=== PATIENT | male | born 1955 | race Caucasian/White ===

== ENCOUNTER 2024-01-01 06:00 | Inpatient (IN) ==
--- NOTE | 2023-12-13 10:09 | PAT Medication Instructions ---
Medication Instructions Date of Service December 13, 2023 Home Medications Medication Instructions Recorded gabapentin 600 mg tablet 600 mg PO TID #270 tabs 11/20/23 tramadol 50 mg tablet 50 mg PO BID PRN pain #40 tabs 11/20/23 nifedipine 30 mg tablet,extended release 24 hr (Procardia XL) 30 mg PO QAM acetaminophen 650 mg tablet,extended release 650 mg PO Q12H PRN omeprazole magnesium 20 mg tablet,delayed release (Prilosec OTC) 20 mg PO QAM gabapentin 600 mg tablet 600 mg PO TID tramadol 50 mg tablet 50 mg PO BID PRN cholecalciferol (vitamin D3) 50 mcg (2,000 unit) capsule (Vitamin D3) 50 mcg PO QAM diphenhydramine HCl 25 mg capsule (Benadryl) 50 mg PO DAILY PRN finasteride 5 mg tablet 5 mg PO QAM potassium 99 mg tablet 99 mg PO QAM DO NOT take the morning of surgery cholecalciferol (vitamin D3) 50 mcg (2,000 unit) capsule (Vitamin D3) 50 mcg PO QAM diphenhydramine HCl 25 mg capsule (Benadryl) 50 mg PO DAILY PRN potassium 99 mg tablet 99 mg PO QAM Take morning of surgery With a small sip of water, OTHERWISE NOTHING TO EAT OR DRINK AFTER MIDNIGHT: nifedipine 30 mg tablet,extended release 24 hr (Procardia XL) 30 mg PO QAM acetaminophen 650 mg tablet,extended release 650 mg PO Q12H PRN(if needed) omeprazole magnesium 20 mg tablet,delayed release (Prilosec OTC) 20 mg PO QAM gabapentin 600 mg tablet 600 mg PO TID tramadol 50 mg tablet 50 mg PO BID PRN(if needed) finasteride 5 mg tablet 5 mg PO QAM Take evening before surgery acetaminophen 650 mg tablet,extended release 650 mg PO Q12H PRN(if needed) gabapentin 600 mg tablet 600 mg PO TID tramadol 50 mg tablet 50 mg PO BID PRN(if needed) Other Notes If you have any questions please call us at [phone] or [phone] or [phone] or [phone]
--- NOTE | 2023-12-21 12:35 | Anesthesiology Consultation ---
Date of Service December 21, 2023 Assessment & Plan (1) Encounter for pre-operative examination: - Infectious disease screening: Per assessment on 12/21/23: No known recent infectious disease contacts or current infectious disease symptoms. - Patient acceptable risk for surgery pending surgeon-ordered PCP preop evaluation ([facility] [place], appt 12/21). Chart Review Chart Review: Patient seen in Pre Admission Testing Teaching & Discussion Pre-Anesthesia Teaching/Discussion Notes: Instructed NPO after midnight before surgery,except medications with 15 cc of water. Medication instructions provided according to the PAT guidelines. History Surgery Operation Date: 01/01/24 07:45 Proposed Procedures p L2-L3 Lumbar Decompression, L2-L3 Interbody Cage, L3-S1 Lumbar Fusion, L3-L5 Hardware Removal, with Spinal Cord Monitoring - Odilon Estevez DO Height/Weight Height: 6 ft Weight: 109.9 kg Allergies Allergy/AdvReac Type Severity Reaction Status Date / Time nabumetone [From Relafen] Allergy Intermediate Mouth sores Verified 12/15/23 15: 32 NSAIDS (Non-Steroidal Allergy Intermediate Mouth Verified 12/15/23 15:32 Anti-Inflamma sores - (tolerates Ibuprofen/ASA) morphine AdvReac Intermediate Gastrointestinal Verified 12/12/23 12:37 Upset Medications Home Medications Medication Instructions Recorded Confirmed Last Taken nifedipine 30 mg tablet,extended 30 mg PO QAM 05/22/19 12/12/23 Unknown release 24 hr (Procardia XL) acetaminophen 650 mg 650 mg PO Q12H PRN Pain 10/02/23 12/12/23 Unknown tablet,extended release omeprazole magnesium 20 mg 20 mg PO QAM 10/02/23 12/12/23 Unknown tablet,delayed release (Prilosec OTC) gabapentin 600 mg tablet 600 mg PO TID #270 tabs 11/20/23 12/12/23 Unknown tramadol 50 mg tablet 50 mg PO BID PRN pain #40 tabs 11/20/23 12/12/23 Unknown cholecalciferol (vitamin D3) 50 50 mcg PO QAM 12/12/23 12/12/23 Unknown mcg (2,000 unit) capsule (Vitamin D3) diphenhydramine HCl 25 mg capsule 50 mg PO DAILY PRN allergies 12/12/23 12/12/23 Unknown (Benadryl) finasteride 5 mg tablet 5 mg PO QAM 12/12/23 12/12/23 Unknown potassium 99 mg tablet 99 mg PO QAM 12/12/23 12/12/23 Unknown Past Medical History Medical History BPH (benign prostatic hyperplasia) GERD (gastroesophageal reflux disease) Hx pulmonary embolism s/p lumbar fusion in 2019 about 1 week after the surgery. treated inpatient for 1 week at [facility], treated with anticoagulants for ~6months. the PE is resolved and doing well, no current issues Hypertension Neuropathy bilateral legs Spinal stenosis Exercise / Class Metabolic Activity II 4-5 Yardwork/Stairs/Walk up hill (one FS: No CP, no SOB) Past Family History Family History Other No family history of adverse response to anesthesia Past Surgical History Surgical History History of colonoscopy History of lumbar fusion (2019) [facility] [place] [facility] [place]) History of rotator cuff surgery R/L S/P epidural steroid injection lumbar S/P left knee arthroscopy Past Anesthesia History No Hx of Anesthesia Complications and No Family Hx of Anesthesia Complications History of PONV No Hx of PONV and No Hx of Motion Sickness Social History Smoking Status: Former smoker Do You Dip or Chew Tobacco: No Smoking End Date: Quit 1999 Hx Alcohol Use: Yes Alcohol type: beer alcohol intake frequency: a few times a month Hx Substance Use: No substance use type: does not use Review of Systems Patient denies chest pain, shortness of breath, dyspnea on exertion, fever, chills, cough, wheezing, palpitations. Physical Exam Vital Signs BP 128/82 P 71 TEMP 97.9 SP02 98%RA RESP 16 Physical Full cervical extension range of motion. Full TMJ range of motion. TMD > 3.5 finger breaths Mallampati Score I Dentition: missing molars, + crowns Lungs: clear throughout to auscultation Cardiac: regular rate and rhythm, no murmurs noted Spine: normal Carotid arteries: negative bruit Extremities: no LE edema Trimmed sanabria Lab Results Anesthesia Preop Results Results Anesthesia Widget: WBC 4.04 K/ul (4.8-10.8) L 12/21/23 Hgb 13.3 g/dl (14.0-18.0) L 12/21/23 Hct 39.4 % (42.0-52.0) L 12/21/23 Plt 184 K/uL (130-400) 12/21/23 Na 140 mmol/L (136-145) 12/21/23 K 4.1 mmol/L (3.5-5.1) 12/21/23 Cl 109 mmol/L (98-107) H 12/21/23 CO2 24 mmol/L (21-32) 12/21/23 BUN 35 mg/dl (6-23) H 12/21/23 Creat 1.19 mg/dl (0.6-1.4) 12/21/23 Glucose Level 96 mg/dl (70-99(Fasting)) 12/21/23 PT 11.5 Seconds (9.0-12.0) 12/21/23 PTT 25 Seconds (21-31) 12/21/23 INR 1.1 (0.9-1.1) 12/21/23 Urine Color Yellow 12/21/23 Urine Appearance Clear (Clear) 12/21/23 Urine pH 5.5 (4.5-7.5) 12/21/23 Urine Specific [place] 1.030 (1.000-1.030) 12/21/23 Urine Protein Trace (Negative) H 12/21/23 Urine Glucose (UA) Negative (Negative) 12/21/23 Urine Ketones Trace (Negative) H 12/21/23 Urine Blood Negative (Negative) 12/21/23 Urine Nitrite Negative (Negative) 12/21/23 Urine Bilirubin Negative (Negative) 12/21/23 Urine Urobilinogen Negative (Negative) 12/21/23 Urine Leukocyte Esterase Negative (Negative) 12/21/23 Urine WBC (Auto) 0-5 /hpf (0-5) 12/21/23 Urine RBC (Auto) 0-2 /hpf (0-2) 12/21/23 Urine Hyaline Casts (Auto) 0-2 /lpf (0-2) 12/21/23 Urine Epithelial Cells (Auto) 0-2 /hpf (0-2) 12/21/23 Urine Bacteria (Auto) None Seen (None Seen) 12/21/23 Blood Type B Positive 12/21/23 Antibody Screen NEGATIVE 12/21/23 Testing Electrocardiogram Date: 12/21/23 NSR at 68bpm. 1st degree AVB. iRBBB. Rightward axis. Chest X-Ray Date: 12/21/23 FINDINGS: PA and lateral chest radiographs are obtained. No prior studies are available for comparison at the time of dictation. The cardiomediastinal silhouette is top normal for projection. The lungs and pleural spaces are clear. There is no pneumothorax. The bony thorax appears intact. Degenerative change is noted in the spine. IMPRESSION: No active disease in the chest.
--- OUTSIDE RECORDS SUMMARY | 2024-01-01 06:03 | External Medical Summary | Summary of Care ---
Author Name Unknown Organization [facility] Ambulatory Address [address] [place] [address] Phone Care Team Providers Care [employer] Name Role Phone Mundo Rachel PA-C Primary Care Provider [phone] ProviderEugenia MD Unavailable Unavailabl e Sav Jorgensen DO Unavailable [phone] Keri Winston DO Unavailable [phone] Miley Burnett MD Unavailable [phone] Enrique Lerma DO Unavailable [phone] Arvin Sargent MD Unavailable [phone] Provider, Historical Unavailable Unavailable External, Provider Unavailable Unavailable Dino Marquez PA-C Unavailable [phone] Ed Munoz Unavailable [phone] Provider, Generic External Data Unavailable Unavailable Source Comments This information has been disclosed to you from records protected by federal confidentiality rules (42 CFR part 2). The federal rules prohibit you from making any further disclosure of information inthis record that identifies a patient as having or having had a substance use disorder either directly, by reference to publicly available information, or through verification of such identification by another person unless further disclosure is expressly permitted by the written consent of the individual whose information is being disclosed or as otherwise permitted by 42 CFR part 2. A general authorization for the release of medical or other information is NOT sufficient for this purpose (seesection 2.31). The federal rules restrict any use of the information to investigate or prosecute with regard to a crime any patient with a substance use disorder, except as provided at sections 2.12(c)(5) and 2.65.[facility] Ambulatory Reason for Visit * Reason Comments Pre-Op Exam Encounter Details Date Type Department Care Team (Late st Contact Info) Description 12/22/2023 8:00 AM EDT Office Visit [facility] Family Yandel Hernandez [address] [place] [phone] Waiter: Amber Garcia Colby J, PA-C [address] [place] [phone] Pre-op exam (Primary Dx) Allergies Active Allergy Reactions Criticality Noted Date Comments Environmental Allergens 09/13/2019 Morphine 09/16/2019 Nsaids (Non-Steroidal Anti-I nflammatory Drug) 08/21/2019 Nabumetone 01/24/2018 documented as of this encounter (statuses as of 12/22/2023) Medications Medication Sig Dispensed Refills Start Date End Date Status acetaminophen (TYLENOL ER) 650 mg oral extended-release tablet Take 650 mg by mouth every 8 hours as needed Active chlorpheniramine maleate (ALLERGY 4-HOUR ORAL) Take 1 tablet by mouth daily Active finasteride (PROSCAR) 5 mg oral tablet Take 1 tablet by mouth daily 90 tablet 4 03/17/2023 Active NIFEdipine (PROCARDIA-XL) 30 mg oral extended-release tablet Take 1 tablet by mouth daily 90 tablet 1 10/24/2023 Active gabapentin (NEURONTIN) 600 mg oral tablet Take 1 tablet by mouth 3 times a day 11/20/2023 Active ibuprofen (ADVIL MIGRAINE) 200 mg oral Take 600 mg by mouth every 4 hours as needed for pain (breakthrough) Active cholecalciferol, Vitamin D3, (D3-2000) 50 mcg (2,000 unit) oral Take 1,000 units by mouth 2 times a day Active betamethasone valerate (VALISONE) 0.1 % topical lotion Apply to affected area 2 times a day 60 mL 03/04/2020 12/22/2023 Discontinued (Completed) methylPREDNISolon e (MEDROL, CHING,) 4 mg oral tablet Take as directed. 21 tablet 09/25/2023 12/22/2023 Discontinued (Completed) documented as of this encounter (statuses as of 12/22/2023) Active Problems Problem Noted Date Diagnosed Date Status post lumbar spinal fusion 10/26/2019 Acute retention of urine 09/16/2019 Benign prostatic hyperplasia with urinary obstru ction 09/16/2019 Spinal stenosis of lumbar region 09/16/2019 Polymyalgia rheumatica 06/07/2019 Bilateral hand pain 06/07/2019 Essential hypertension with goal blood pressure less than 140/90 11/17/2015 Gastroesophageal reflux disease without esophagi tis 05/12/2015 documented as of this encounter (statuses as of 12/22/2023) Immunizations Name Administration Dates Next Due Tdap 02/16/2012 documented as of this encounter Social History Tobacco Use Types Packs/Day Years Used Date Smoking Tobacco: Former Cigarettes 31 1 969 - 1999 Smokeless Tobacco: Never Comments:Quit 20 years ago Alcohol Use Standard Drinks/Week Comments Not Currently 0 (1 standard drink = 0.6 oz pur e alcohol) AUDIT-C Answer Date Recorded Q1: How often do you have a drink containing alc ohol? Never 09/22/2020 Average Number of Drinks Not on file 021 Frequency of Binge Drinking Not on file 11/2020 [facility] - Occupational Stress Questionnaire Answer Date Recorded Do you feel stress - tense, restless, nervous, or anxious, or unable to sleep at night because your mind is troubled all the time - these days? Not at all 04/22/2020 Exercise Vital Sign Answer Date Recorde d On average, how many days pe r week do you engage in moderate to strenuous exercise (like a brisk walk)? 0 days Minutes of Exercise per Session Not on file 04/22/2020 Depression Answer Date Recorded PHQ-2 Screening Result Negative PHQ Result Negative 06/28/2023 Sex and Gender Information Value Date Recorded Sex Assigned at Not on file Gender Identity Not on file Sexual Orientation Not on file documented as of this encounter Last Filed Vital Signs Vital Sign Reading Time Taken Comments Blood Pressure 142/86 12/22/2023 8:23 AM EDT Pulse 66 12/22/2023 8:10 AM EDT Temperature 36.6 C (97.9 F) 12/22/2023 8:10 AM ED T Respiratory Rate 16 12/22/2023 8:10 AM EDT Oxygen Saturation 99% 12/22/2023 8:10 AM EDT Inhaled Oxygen Concentration - - Weight 110 kg (242 lb 6.4 oz) 12/22/2023 8:10 AM EDT Height 182.9 cm (6') 12/22/2023 8:10 AM EDT Body Mass Index 32.88 12/22/2023 8:10 AM EDT documented in this encounter Progress Notes * Mundo Rachel PA-C - 12/22/2023 8:00 AM EDT [facility] [place] [address] [place] [address] Name: Guru Schmidt Date of : 1955 Chief Complaint Preop Exam History of Present Illness Guru Schmidt is a 68 year old male who presents today for preop exam for upcoming lumbar surgeryon 01/01/24. History of previous lumbar surgery in 2019. Was sent to pain management at [facility] following office visit here in June. Injections not helpful. Had updated MRI that showed operable changes from previous. He states he is feeling well outside of back pain. No recent fever/illness. Appetite normal. I have personally reviewed and updated the patient's problem list, past medical, surgical, family histories, review of systems as well as the patient's medications and allergies. Please refer to the patient's chart for further details. Review of Systems Review of Systems Constitutional: Negative. Skin: Negative. HENT: Negative. Eyes: Negative. Cardiovascular: Negative. Respiratory: Negative. Gastrointestinal: Negative. Neurological: Negative. Musculoskeletal: Positive for back pain. Family History Problem Relation Age of Onset Cancer Biological Father Ca, Prostate Biological Father Hypertension Biological Father Ca, Bladder No History of Ca, Kidney No History of Kidney Disease No History of Urolithiasis No History of Social History Tobacco Use Smoking status: Former Current packs/day: 0.00 Average packs/day: 1 pack/day for 31.0 years (31.0 ttl pk-yrs) Types: Cigarettes Start date: 1968 Quit date: 2000 Years since quittin.6 Smokeless tobacco: Never Tobacco comments: Quit 20 years ago Vaping Use Vaping status: never used Substance Use Topics Alcohol use: Not Currently Drug use: No Past Surgical History: Procedure Laterality Date ARTHROSCOPY, KNEE, SURGICAL; W/ MENISCUS REPAIR, MEDIAL/LATERAL Right BACK SURGERY COLONOSCOPY KNEE SURGERY Right meniscus surgery REMOVAL OF SPERM DUCT(S) REP SHOULDER/ROTATOR CUFF Bilateral SHOULDER SURGERY Bilateral RCR Outpatient Medications Marked as Taking for the 12/22/23 encounter (Office Visit) with Mundo Rachel PA-C Medication Sig Dispense Refill acetaminophen (TYLENOL ER) 650 mg oral extended-release tablet Take 650 mg by mouth every 8 hours as needed chlorpheniramine maleate (ALLERGY 4-HOUR ORAL) Take 1 tablet by mouth daily cholecalciferol, Vitamin D3, (D3-2000) 50 mcg (2,000 unit) oral Take 1,000 units by mouth 2 times aday finasteride (PROSCAR) 5 mg oral tablet Take 1 tablet by mouth daily 90 tablet 4 gabapentin (NEURONTIN) 600 mg oral tablet Take 1 tablet by mouth 3 times a day ibuprofen (ADVIL MIGRAINE) 200 mg oral Take 600 mg by mouth every 4 hours as needed for pain (breakthrough) NIFEdipine (PROCARDIA-XL) 30 mg oral extended-release tablet Take 1 tablet by mouth daily 90 tablet1 Physical Exam BP (!) 156/90 | Pulse 66 | Temp 97.9 F (36.6 C) (Temporal) | Resp 16 | Ht 6' (182.9 cm) | Wt 242 lb 6.4 oz (110 kg) | SpO2 99% | BMI 32.88 kg/m Wt Readings from Last 2 Encounters: 12/22/23 242 lb 6.4 oz (110 kg) 09/25/23 233 lb 3.2 oz (105.8 kg) BP Readings from Last 2 Encounters: 12/22/23 (!) 156/90 09/25/23 124/80 Physical Exam Vitals and nursing note reviewed. Constitutional: General: He is not in acute distress. Appearance: Normal appearance. HENT: Right Ear: Tympanic membrane and ear canal normal. Left Ear: Tympanic membrane and ear canal normal. Cardiovascular: Rate and Rhythm: Normal rate and regular rhythm. Heart sounds: Normal heart sounds. Pulmonary: Effort: Pulmonary effort is normal. No respiratory distress. Breath sounds: Normal breath sounds. Abdominal: Palpations: Abdomen is soft. Tenderness: There is no abdominal tenderness. Musculoskeletal: Cervical back: Neck supple. Lumbar back: No tenderness. Right lower leg: No edema. Left lower leg: No edema. Comments: SLR test reproduces back pain without radiating pains Neurological: Mental Status: He is alert and oriented to person, place, and time. Sensory: No sensory deficit. Motor: No weakness. Impression and Plan Diagnosis ICD-10-CM Plan 1. Pre-op exam Z01.818 - cleared for surgery - follow up here as directed by surgical team - call with questions/concerns Mundo Rachel PA-C [facility] [place] 12/22/23 documented in this encounter Nursing Notes * Madeline Wong LPN - 12/22/2023 8:00 AM EDT Pt here for pre op clearance for low back surgery-pt having spinal fusion with hardware by Dr. Estevez on 01/01/24. Pt did have pre op clearance completed. documented in this encounter Plan of Treatment Health Maintenance Due Date Last Done Comments AAA Screening 1955 Cologuard 1955 Fecal Occult Blood Testing 1955 Sigmoidoscopy 1955 Colonoscopy 04/17/2017 04/17/2007 Billable Depression Screen 10/20/202210/20, 04/22/2020 Medicare Annual Wellness Visit 03/30/2023 03/30/2022 Flu Vaccine (#1) 01/16/2024 COVID-19 Vaccine (#1) 06/27/2024 Postpo so from 12/14/1960 (Recommended Yet Declined) Colorectal Cancer Screening 06/27/2024 Postponed from 1955 (Recommended Yet Declined) DTaP/Tdap/Td Vaccine (2 - Td or Tdap) 06/27/2024 02/16/2012 Postponed from 02/15 (Recommended) Full Body Skin Exam 06/27/2024 12/13/2018 Postpone d from 12/14/2019 (Recommended) Hearing Screening 06/27/2024 Postponed from 12/14/2020 (Recommended) Hepatitis C Screen 06/27/2024 Postponed from 12/14/1973 (Recommended Yet Declined) Pneumococcal Vaccine (1 of 2 - PCV) 06/27/2024 Postponed from 12/14 (Recommended Yet Declined) Shingles Vaccine (Recombinant) (1 of 2) 06/27/2024 Postponed from (Recommended Yet Declined) Prostate Discussion 01/09/2025 01/09/2023, 04/15/2020, 07/23/2018 Vision Exam 10/20/2026 10/20/2021 Advance Directives 01/13/2027 01/13/2022, 10/31/2018 Cholesterol Screening 06/27/2028 06/28/2023 , 04/15/2020, 07/23/2018 Depression Screening Completed 12/22/2023, 06/28/2023 Hepatitis B Vaccine Aged Out No longe r eligible based on patient's age to complete this topic documented as of this encounter Visit Diagnoses Diagnosis Pre-op exam- Primary Preoperative examination, unspecified documented in this encounter Care Teams [employer] Relationship Specialty Start Date End Date Munod Rachel PA-C [address] [facility] [address] [place] [phone] PCP - General Family Medicine 01/24/18 Provider, Abstract, MD KAM PROVIDER 08/23/18 Sav Jorgensen DO [address] [facility] [address] [place] [phone] (Work) Sports Medicine 09/04/18 Keri Winston DO [phone] [place] [phone] Rheumatology 12/14/18 Miley Burnett MD [address] [place] [phone] Vascular Surgery 03/28/19 Enrique Lerma DO [address] [place] [phone] Vascular Surgery 04/08/19 Arvin Sargent MD [address] [place] [phone] Pain Medicine 05/01/19 Provider, Historical EPICARE PROVIDER 08/14/19 External, Provider 10/03/19 Dino Marquez PA-C [address] [facility] [address] [place] [phone] Sports Medicine 11/05/21 Ed Munoz CRNP [address] [place] [phone] Urology 01/13/22 Provider, Generic External Data 12/22/23 documented as of this encounter"
[2024-01-01] MEDS: ACETAMINOPHEN 500 MG TAB PO SCH (06:32)
[2024-01-01] MEDS: LR 15ML/HR IV SCH (06:32)
[2024-01-01] MEDS: GABAPENTIN 300 MG CAP PO SCH (06:32)
[2024-01-01] MEDS: CeleBREX 200 MG CAP PO SCH (06:32)
[2024-01-01] MEDS: LR 60ML/HR IV SCH (06:32)
[2024-01-01] MEDS ORDERED: ONDANSETRON INJ 2 MG/ML 2 ML VIAL ONE (06:43)
[2024-01-01] MEDS ORDERED: DEXAMETHASONE SOD INJ 4 MG/ML VIAL ONE (06:43)
[2024-01-01] MEDS ORDERED: MIDAZOLAM HCL 1 MG/ML 2ML VIAL ONE (06:43)
[2024-01-01] MEDS ORDERED: fentaNYL citrate PF 100 MCG/2 ML VIAL ONE (06:43)
[2024-01-01] MEDS ORDERED: ROCURONIUM BROMIDE 10 MG/ML 5 ML VIAL IV ONE ×2 (06:43→08:13)
[2024-01-01] MEDS ORDERED: PROPOFOL IV EMULSION 10 MG/ML 20 ML VIAL IV ONE (06:43)
[2024-01-01] MEDS ORDERED: SUGAMMADEX SODIUM 200 MG/2 ML VIAL IV ONE ×2 (06:44→09:34)
[2024-01-01] MEDS ORDERED: HYDROmorphone INJ 2 MG/ML SYR/VIAL ONE (06:44)
[2024-01-01] MEDS ORDERED: KETAMINE HCL 10MG/ML SYR ONE (06:44)
[2024-01-01] MEDS ORDERED: fentaNYL citrate PF 100 MCG/2 ML VIAL IV PRN (07:03)
[2024-01-01] MEDS ORDERED: ATROPINE SULFATE 0.1 MG/ML 10ML SYR IV PRN (07:03)
[2024-01-01] MEDS ORDERED: ePHEDrine sulfate 50 MG/ML AMP IV PRN (07:03)
[2024-01-01] MEDS ORDERED: ONDANSETRON INJ 2 MG/ML 2 ML VIAL IV PRN (07:03)
--- NOTE | 2024-01-01 07:37 | History & Physical Bridge Note ---
Date of Service January 01, 2024 History & Physical Bridge Note I have examined the patient, reviewed the History & Physical and in the interval since the performance of the History & Physical I have noted the following changes of clinical significance: no changes noted
--- NOTE | 2024-01-01 07:38 | History & Physical Report ---
Date of Service January 01, 2024 Assessment & Plan (1) Neurogenic claudication due to lumbar spinal stenosis: Plan: Lumbar decompression L2-L3, interbody fusion L2-L3, lumbar fusion L3-S1, hardware removal L3-L5 History of Present Illness Chief Complaint: Back and leg pain Primary Care Provider: Mundo Rachel PA-C This is a 68-year-old male who presents with chronic persistent back and leg pain and failing course of nonoperative care is here for surgical intervention. Allergies Allergy/AdvReac Type Severity Reaction Status Date / Time nabumetone [From Relafen] Allergy Intermediate Mouth sores Verified 01/01/24 06 :18 NSAIDS (Non-Steroidal Allergy Intermediate Mouth Verified 01/01/24 06:18 Anti-Inflamma sores - (tolerates Ibuprofen/ASA) morphine AdvReac Intermediate Gastrointestinal Verified 01/01/24 06:18 Upset Home Medications Medication Instructions Recorded Confirmed Type nifedipine 30 mg tablet,extended 30 mg PO QAM 05/22/19 01/01/24 History release 24 hr (Procardia XL) acetaminophen 650 mg 650 mg PO Q12H PRN Pain 10/02/23 01/01/24 History tablet,extended release omeprazole magnesium 20 mg 20 mg PO QAM 10/02/23 01/01/24 History tablet,delayed release (Prilosec OTC) gabapentin 600 mg tablet 600 mg PO TID #270 tabs 11/20/23 01/01/24 Rx tramadol 50 mg tablet 50 mg PO BID PRN pain #40 tabs 11/20/23 01/01/24 Rx cholecalciferol (vitamin D3) 50 50 mcg PO QAM 12/12/23 01/01/24 History mcg (2,000 unit) capsule (Vitamin D3) diphenhydramine HCl 25 mg capsule 50 mg PO DAILY PRN allergies 12/12/23 01/01/24 History (Benadryl) finasteride 5 mg tablet 5 mg PO QAM 12/12/23 01/01/24 History potassium 99 mg tablet 99 mg PO QAM 12/12/23 01/01/24 History Past Med/Surg History Problem List (Updated 01/01/24 @ 07:38 by Odilon Estevez DO) Neurogenic claudication due to lumbar spinal stenosis Encounter for pre-operative examination Lumbar post-laminectomy syndrome Spinal stenosis, lumbar region with neurogenic claudication (Chronic) History of torn meniscus of right knee Medical History BPH (benign prostatic hyperplasia) GERD (gastroesophageal reflux disease) Hx pulmonary embolism s/p lumbar fusion in 2019 about 1 week after the surgery. treated inpatient for 1 week at [facility], treated with anticoagulants for ~6months. the PE is resolved and doing well, no current issues Hypertension Neuropathy bilateral legs Spinal stenosis Surgical History History of colonoscopy History of lumbar fusion (2019) [facility] [place] ([facility] [place]) History of rotator cuff surgery R/L S/P epidural steroid injection lumbar S/P left knee arthroscopy Family History Other No family history of adverse response to anesthesia Social History Smoking Status: Former smoker Tobacco Type: Cigarettes Smoking End Date: Quit 1999; Second Hand Exposure: No; Do You Dip or Chew Tobacco: No; Tobacco Cessation Education Requested by Patient: No Hx Alcohol Use: Yes Alcohol type: beer Hx Substance Use: No Preferred Language: Yakut Communication Ability: Effective Visual Impairment: No Limitations Hearing Ability: Normal Filler Picker Required: No Beliefs That Will Affect Care: None marital status: Current Living Situation: Spouse current occupational status: employed Other Information That Helps Us Care for You: No Feels Safe at Home: Yes Safety Concerns: Feels Safe At This Time Assistive Devices: Glasses Physical Exam Physical Exam: Patient is alert and oriented heart regular in rhythm lungs clear Results & Data Results & Data Vital Signs (Past 12 Hours) Vital Signs Temp Pulse Resp BP Pulse Ox O2 Del Method 01/01/24 06:21 36.5 C 74 20 189/108 H 96 Room Air
[2024-01-01] MEDS: ceFAZolin 2000MG 2,000 MG/15 ML SYR IV SCH ×2 (07:47→15:56)
[2024-01-01] MEDS ORDERED: PROMETHAZINE HCL INJ 25 MG/ML 1 ML VIAL ONE (08:16)
[2024-01-01] MEDS ORDERED: GLYCOPYRROLATE 0.2 MG/ML VIAL ONE (08:22)
[2024-01-01] MEDS: BUPIVACAINE/EPINEPHRINE 0.25% 1:200,000 30 ML VIAL ONE (08:28)
[2024-01-01] MEDS: FLOSEAL HEMOSTATIC MATRIX 10ML TOP ONE (09:26)
[2024-01-01] MEDS: ceFAZolin 330 MG/ML 1 GM VIAL ONE (09:26)
--- NOTE | 2024-01-01 09:40 | Operative Report ---
Post Operative Report Pre & Post Diagnosis Operation Date: 01/01/24 07:45 Pre-Op Diagnosis: Neurogenic claudication due to lumbar spinal stenosis Post-Op Diagnosis: Neurogenic claudication due to lumbar spinal stenosis Nonunion L3-L4 I identified the patient and participated in the time-out.: Yes Procedure Operation Date: 01/01/24 07:45 Actual Procedures #1 removal of posterior instrumentation L3-L5. #2 exploration of fusion L3-L5. #3 lumbar decompression with bilateral medial facetectomies and foraminotomies L1-L2 L2-L3. #4 posterior spinal fusion L2-L3 L3-L4. #5 placed posterior instrumentation L2-L5. #6 interbody fusion L2-L3. #7 placement of Spira 15 x 26 mm at L2-L3. #8 placement locally harvested morselized autograft and posterior gutters. #9 placement of infuse collagen sponge, with Koros in the posterior lateral gutters and os design bone graft interbody space. #10 placement of versa wrap over the exposed dura. Surgeon Odilon Estevez, DO Pipe Setter Yisel Somers Estimated Blood Loss 150 Findings See Below The patient is 6 foot tall weighing 109 kg with a BMI in excess of 32. Patient brought a piece did contribute to significant technical difficulty with positioning exposure and the procedure itself and at least 50% increased operative time. Specimens None Indications This is a 68-year-old male who presents above-mentioned diagnosis after failing course of nonoperative care is here for surgical invention. Description of Procedure Patient was met with identified informed consent obtained. Patient was then taken to the operative suite underwent ablation placed in a prone position on the Parmjit table on top of the Travis frame. All bony prominences well-padded eyes inspected to ensure no external pressure placed upon them. This point the lumbar spine was prepped and draped in normal sterile fashion. Sharp dissection with the assistance of Bovie cautery performed down to and exposing the lamina transverse processes of L2 and instrumentation L3 L4-5 bilaterally. And then proceeded to move the hardware bilaterally explored the fusion mass noting a paucity of graft and instability at L3-L4 solid fusion L4-5. Informed complete laminectomy of L2 including bilateral medial facetectomies and foraminotomies addressing severe spinal stenosis followed by partial laminectomy of L1 with bilateral medial facetectomies to address all subarticular stenosis. Pedicle screws were then placed in L2-L3 L4-5 bilaterally with assistance of fluoroscopy and proper size ada placed. By way of transforaminal approach on the right complete discectomy of L2-L3 was performed endplates guided to subcortical bleeding bone and a 15 x 26 mm Spira cage filled with os design bone graft tapped in position. The rods were then compressed locked in final position bilaterally. The transverse processes of L2-L3-L4 burred to subcortical bleeding bone. Infuse collagen sponge combined with Koros and local autograft placed in the posterior lateral gutters. Versa wrap placed over the exposed dura. 15 round ANDREAS drain inserted. The incision was then closed with 1 Vicryl and fascia 2-0 Vicryl subcutaneously and 4 Monocryl for final skin closure. Steri-Strips sterile dressing placed. Patient waken taken to PACU in stable condition. Please note spinal cord monitoring was utilized at the procedure no changes noted. Yisel Somers was present out the entire surgery involved the patient positioning complex portion of the surgery and final skin closure. Im ordering 20 grams of Triple Converse Collagen Powder ([id number] [id number]) to treat an incision wound that was caused by a spine procedure. The incision is approximately 2 cm(W) x 4 cm(L) into the joint (D) in size and is a full thickness wound. Triple Converse collagen comes in 1 gram packets so 20 packets were ordered. Given the size of the wound, with light to moderate exudate I chose to order a 20 day supply. The patient will be provided instructions for proper application of the collagen wound kit. The patient will be asked to apply the collagen powder daily and then cover it with sterile dressings dispensed. Collagen was selected as I expect the collagen to attract monocytes and fibroblasts, act as a sacrificial substrate for MMPs, and ultimately proved a matrix for tissue and vessel growth. The collagen will act as a primary dressing in this scenario. It is medically necessary for proper healing of these wounds to improve bioavailability and contact with each wound surface, this is also to help prevent infection of wounds and promote healing ultimately leading to a better healing outcome and limit the risk of infection. I attest to the content of the Intraoperative Record and any orders documented therein. Any exceptions are noted below.
--- NOTE | 2024-01-01 09:58 | Fluoroscopy Report ---
FL lumbar spine 2-3V CLINICAL HISTORY: L2-3 DECOMP INTERBODY CAGE FUSION HW REMOVAL COMPARISON STUDY: MRI 10/16/2023 FLUOROSCOPY TIME: 14.9 seconds FLUOROSCOPY IMAGES: 2 EXPOSURE DOSE: 10.79 mGy FINDINGS: Posterior interbody ada and screw fusion hardware of the lumbar spine, exact numbering is n ot definitive based on magnification of the images. Single level discectomy also noted. The imaged brantley rdware appears to be intact. No additional unexpected opaque foreign bodies identified. IMPRESSION: Fluoroscopic assistance as above. ACT 112: Negative or not required by law. Electronically signed by: Jonathon Vuong M.D. 01/01/2024 9:57 AM
[2024-01-01] MEDS ORDERED: ALUMINUM/MAGNESIUM SUSP 30 ML UDC PO PRN (11:16)
[2024-01-01] MEDS ORDERED: ACETAMINOPHEN 1,000 MG/100 ML VIAL IV PRN (11:16)
[2024-01-01] MEDS ORDERED: NALOXONE HCL 0.4 MG/1 ML VIAL/CARP IV PRN (11:16)
[2024-01-01] MEDS ORDERED: DO NOT ADMINISTER PNEUMOCOCCAL VACCINE PRN (11:16)
[2024-01-01] MEDS ORDERED: ONDANSETRON 4 MG OD TAB PO PRN (11:16)
[2024-01-01] MEDS ORDERED: FAMOTIDINE 20 MG TAB PO PRN (11:16)
[2024-01-01] MEDS ORDERED: HYDROmorphone INJ 1 MG/ML SYRINGE IV PRN (11:16)
[2024-01-01] MEDS ORDERED: HYDROmorphone INJ 0.5 MG/0.5 ML SYR IV PRN (11:16)
[2024-01-01] MEDS ORDERED: MAGNESIUM HYDROXIDE SUSP 30 ML UDC PO PRN (11:16)
[2024-01-01] MEDS ORDERED: bisacodyL 10 MG SUPP PR PRN (11:16)
[2024-01-01] MEDS ORDERED: LORazepam 2 MG/1 ML VIAL IV PRN (11:16)
[2024-01-01] MEDS ORDERED: hydrOXYzine HCl 25 MG TAB PO PRN (11:16)
[2024-01-01] MEDS ORDERED: SOD PHOSPHATE/SOD BIPHOSPHATE ENEMA 132 ML BTL PR PRN (11:16)
[2024-01-01] MEDS ORDERED: DO NOT ADMINISTER FLU VACCINE PRN (11:16)
[2024-01-01] MEDS ORDERED: LORazepam 0.5 MG TAB PO PRN (11:16)
[2024-01-01] MEDS ORDERED: diphenhydrAMINE Capsule 25 MG CAP PO PRN ×2 (11:16)
[2024-01-01] MEDS ORDERED: METOCLOPRAMIDE HCL INJ 5 MG/ML 2 ML VIAL IV PRN (11:16)
[2024-01-01] MEDS ORDERED: PROMETHAZINE 12.5 MG/50.5 ML BAG IV PRN (11:16)
[2024-01-01] MEDS: oxyCODONE HCL IR 5 MG TAB (IMMEDIATE RELEASE) PO PRN (11:47)
[2024-01-01] MEDS: LACTATED RINGER'S 1,000 ML IV SCH (11:48)
--- NOTE | 2024-01-01 12:32 | Consultation ---
Date of Consultation January 01, 2024 Assessment & Plan (1) Neurogenic claudication due to lumbar spinal stenosis: Plan s/p Lumbar Repair Neurogenic claudication due to lumbar spinal stenosis Patient status post lumbar spine repair 12/31, reports improvement in BLE radicular signs and symptoms. Monitor for acute blood loss anemia, monitor ANDREAS drain output. Pain management/DVT prophylaxis/PT and OT per primary team. Incentive spirometer. Labs in AM. Other chronic medical conditions: HTN, neuropathic pain---> continue with/resume home meds as when able DVT prophylaxis: SCDs. Chemo DVT prophylaxis per primary team. Full code History of Present Illness Requesting Physician: Dr. Estevez Reason for Consultation: medical Mx Attending Physician: Odilon Estevez, DO History of Present Illness 68-year-old male with PMH of spinal stenosis, lumbar region with neurogenic claudication, torn meniscus of right knee was seen and examined at bedside as a consultation for medical management status post lumbar spine surgery. Patient denies any febrile illness in the recent past weeks, reported having BLE radicular signs and symptoms which has improved after the surgery today. Patient reports operative site pain under control. Patient denies smoking, denies being on any blood thinner. Patient denies other ROS. Allergies Allergy/AdvReac Type Severity Reaction Status Date / Time nabumetone [From Relafen] Allergy Intermediate Mouth sores Verified 01/01/24 06:18 NSAIDS (Non-Steroidal Allergy Intermediate Mouth Verified 01/01/24 06:18 Anti-Inflamma sores - (tolerates Ibuprofen/ASA) morphine AdvReac Intermediate Gastrointestinal Verified 01/01/24 06:18 Upset Home Medications Medication Instructions Recorded Confirmed Type nifedipine 30 mg tablet,extended 30 mg PO QAM 05/22/19 01/01/24 History release 24 hr (Procardia XL) acetaminophen 650 mg 650 mg PO Q12H PRN Pain 10/02/23 01/01/24 History tablet,extended release omeprazole magnesium 20 mg 20 mg PO QAM 10/02/23 01/01/24 History tablet,delayed release (Prilosec OTC) gabapentin 600 mg tablet 600 mg PO TID #270 tabs 11/20/23 01/01/24 Rx tramadol 50 mg tablet 50 mg PO BID PRN pain #40 tabs 11/20/23 01/01/24 Rx cholecalciferol (vitamin D3) 50 50 mcg PO QAM 12/12/23 01/01/24 History mcg (2,000 unit) capsule (Vitamin D3) diphenhydramine HCl 25 mg capsule 50 mg PO DAILY PRN allergies 12/12/23 01/01/24 History (Benadryl) finasteride 5 mg tablet 5 mg PO QAM 12/12/23 01/01/24 History potassium 99 mg tablet 99 mg PO QAM 12/12/23 01/01/24 History Patient History Medical History BPH (benign prostatic hyperplasia) GERD (gastroesophageal reflux disease) Hx pulmonary embolism s/p lumbar fusion in 2019 about 1 week after the surgery. treated inpatient for 1 week at [facility], treated with anticoagulants for ~6months. the PE is resolved and doing well, no current issues Hypertension Neuropathy bilateral legs Spinal stenosis Surgical History History of colonoscopy History of lumbar fusion (2019) [facility] [place] ([facility] [place]) History of rotator cuff surgery R/L S/P epidural steroid injection lumbar S/P left knee arthroscopy Family History Other No family history of adverse response to anesthesia Social History Smoking Status: Former smoker Tobacco Type: Cigarettes Smoking End Date: Quit 1999; Second Hand Exposure: No; Do You Dip or Chew Tobacco: No; Tobacco Cessation Education Requested by Patient: No Hx Alcohol Use: Yes Alcohol type: beer Hx Substance Use: No Preferred Language: Ivorian Communication Ability: Effective Visual Impairment: No Limitations Hearing Ability: Normal Integration Lead Required: No Beliefs That Will Affect Care: None marital status: Current Living Situation: Spouse current occupational status: employed Other Information That Helps Us Care for You: No Feels Safe at Home: Yes Safety Concerns: Feels Safe At This Time Assistive Devices: Glasses Review of Systems Review of Systems: Negative otherwise mentioned in HPI. Physical Exam Physical Exam: GENERAL: Alert and oriented x3. NAD, on RA. HEENT: No pallor, no icterus. Pupils equal, round and reactive to light. Oral mucosa moist. NECK: No JVD, no neck masses. HEART: S1 and S2 heard. Regular rate and rhythm. No murmur, no gallop. RESPIRATORY SYSTEM: Normal AP diameter. No accessory muscle use. No wheezing, no crackles. ABDOMEN: Soft, bowel sounds present, nontender, no distention. CENTRAL NERVOUS SYSTEM: No facial droop. Speech is clear. Obeys simple commands. Moves extremities. EXTREMITIES: No edema, no erythema seen. Distal neurovascular status WNL. Low back with clean dressing without soakage. ANDREAS drain with moderate serosanguineous collection noted. Results & Data Vital Signs (Past 12 Hours) Vital Signs Temp Pulse Resp BP Pulse Ox O2 Del Method O2 Flow Rate 01/01/24 11:44 36.3 C L 73 16 160/89 H 92 Room Air 01/01/24 11:26 Room Air 01/01/24 11:10 36.7 C 71 16 169/93 H 93 Room Air 01/01/24 10:40 36.4 C L 74 16 156/91 H 96 Room Air 01/01/24 10:25 36.4 C L 78 18 148/77 H 97 Nasal Cannula 2 01/01/24 10:15 82 20 153/82 H 99 Nasal Cannula 3 01/01/24 10:05 88 22 153/85 H 98 Oxymask 6 01/01/24 09:58 36.1 C L 94 H 16 177/100 H 92 Oxymask 6 01/01/24 06:21 36.5 C 74 20 189/108 H 96 Room Air
[2024-01-01] MEDS: ONDANSETRON INJ 2 MG/ML 2 ML VIAL IV PRN (13:01)
--- NOTE | 2024-01-01 13:01 | Anesthesiology Progress Note ---
Date of Service January 01, 2024 Anesthesia Post Procedure Vital Signs Vital Signs: Temp Pulse Pulse Resp BP Pulse Ox O2 Del Method 01/01/24 12:42 97.3 F L 83 16 164/83 H 95 Room Air 01/01/24 11:44 97.3 F L 73 16 160/89 H 92 Room Air 01/01/24 11:26 Room Air 01/01/24 11:10 98.1 F 71 16 169/93 H 93 Room Air 01/01/24 10:40 97.5 F L 74 16 156/91 H 96 Room Air 01/01/24 10:25 97.5 F L 78 18 148/77 H 97 Nasal Cannula 01/01/24 10:15 82 20 153/82 H 99 Nasal Cannula 01/01/24 10:05 88 22 153/85 H 98 Oxymask 01/01/24 09:58 97.0 F L 94 H 16 177/100 H 92 Oxymask 01/01/24 06:21 97.7 F 74 20 189/108 H 96 Room Air O2 Flow Rate 01/01/24 12:42 01/01/24 11:44 01/01/24 11:26 01/01/24 11:10 01/01/24 10:40 01/01/24 10:25 2 01/01/24 10:15 3 01/01/24 10:05 6 01/01/24 09:58 6 01/01/24 06:21 Pain Intensity Medial Back: Pain Intensity: 4 Transfer of Care Handoff Completed per policy Notes Mental Status: alert / awake / arousable and participated in evaluation Patient Amnestic to Procedure: Yes Nausea / Vomiting: adequately controlled Pain: adequately controlled Airway Patency, RR, SpO2: stable & adequate BP & HR: stable & adequate Hydration State: stable & adequate Anesthetic Complications: no major complications apparent and Pt Satisfied with anesthetic care
[2024-01-01] MEDS: GABAPENTIN 600 MG TAB PO SCH (13:37)
[2024-01-01] MEDS: traMADol HCL 50 MG TABLET PO PRN (13:43)
[2024-01-01] MEDS: DOCUSATE SODIUM/SENNA 50/8.6MG TAB PO SCH (21:14)
[2024-01-02] MEDS: POLYETHYLENE (MIRALAX) 17 GM PACK PO SCH (05:37)
[2024-01-02 05:49] LABS: Basophils # (auto) 0.02 K/uL (0.00-0.20); Basophils % (auto) 0.2 %; Eosinophils # (auto) 0.01 K/uL (0.00-0.50); Eosinophils % (auto) 0.1 %; Hematocrit (blood only) 32.5 % (42.0-52.0); Hemoglobin 11.2 g/dl (14.0-18.0); Immature Granulocytes # (auto) 0.02 K/uL (0.01-0.20); Immature Granulocytes % (auto) 0.2 %; Lymphocytes # (auto) 0.95 K/uL (1.20-3.40); Lymphocytes % (auto) 11.3 %; Mean Corpuscular Hemoglobin 32.4 pg (25.0-34.0); Mean Corpuscular Hgb Conc 34.5 g/dL (32.0-36.0); Mean Corpuscular Volume 93.9 fL (80.0-100.0); Mean Platelet Volume 9.9 fL (9.4-12.4); Monocytes # (auto) 0.67 K/uL (0.11-0.59); Neutrophils # (auto) 6.72 K/uL (1.40-6.50); Neutrophils % (auto) 80.2 %; Platelet Count 162 K/uL (130-400); RDW Coefficient of Variation 12.1 % (11.5-14.5); RDW Standard Deviation 41.8 fL (36.4-46.3); Red Blood Count 3.46 M/uL (4.70-6.10); White Blood Count 8.39 K/ul (4.8-10.8)
[2024-01-02 06:02] LABS: Calcium 8.4 mg/dl (8.6-10.3); Creatinine Clr Calc Pharmacy 93.9 ml/min; Est GFR (African American) 93.8 ml/min; Est GFR (Non-African American) 80.9 ml/min; Magnesium 1.9 mg/dl (1.7-2.4); Phosphorus 3.3 mg/dl (2.5-4.9); Potassium 3.9 mmol/L (3.5-5.1)
[2024-01-02] MEDS: PANTOprazole 40 MG TAB PO SCH (08:39)
[2024-01-02] MEDS: CHOLECALCIFEROL 25 MCG (1000 UNITS) TAB PO SCH (08:39)
[2024-01-02] MEDS: dexAMETHasone 6 MG in SYRINGE 0 ML IV SCH (08:39)
[2024-01-02] MEDS: FINASTERIDE 5 MG TAB PO SCH (08:40)
[2024-01-02] MEDS: NIFEdipine EXTENDED REL 30 MG TABCR PO SCH (08:40)
[2024-01-02] MEDS ORDERED: NON-FORMULARY MEDICATION (Potassium 99 mg Tablet) PO SCH (09:00)
--- NOTE | 2024-01-02 09:02 | Hospitalist Progress Note ---
<Statement entered by Willy Balbuena, - 01/02/24 13:58> I have seen and examined the patient and have discussed the case with the provider above. I have reviewed the advanced practitioner's documentation, and I agree with, and take responsibility for that plan of care. 6 minutes spent on evaluation of patient and coordination care Patient sitting up in chair, no complaints, doing well. Plan of care as outlined below and per attending Date of Service January 02, 2024 Assessment & Plan (1) Neurogenic claudication due to lumbar spinal stenosis: (2) S/P lumbar spine operation: Plan Guru Schmidt is a 68y/o M with PMHx significant for HTN, BPH, BLE neuropathy, history of PE in 2019 and GERD who was referred to our [facility] for post-operative medical management after undergoing lumbar decompression L2-L3, interbody fusion L2-L3, lumbar fusion L3-S1 and hardware removal L3-L5 performed by Dr. Estevez on 01/01/24. Neurogenic Claudication 2/2 Lumbar Spinal Stenosis, S/P Lumbar Spine Operation: POD#1 s/p lumbar decompression L2-L3, interbody fusion L2-L3, lumbar fusion L3- S1 and hardware removal L3-L5 performed with Dr. Estevez. EBL: 150mL & Pre-Op Hgb: 13.3 [12/21/23] --> Hgb 11.2 today [01/02/24] Per ortho for pain control, wound care, anticoagulation and activities. Continue incentive spirometry, PT/OT when appropriate as per ortho team. Monitor H/H for acute blood loss anemia and transfuse blood products PRN. Hypertension: SBP elevated in the 160s-170s overnight. Proceed with AM dose of home nifedipine. Continue to monitor BP. Other Chronic Medical Conditions: BLE neuropathy, BPH, GERD --> Continue home meds for these specific conditions. BLE neuropathic sx's significantly improved. Diet: Advanced to regular diet today. DVT Prophylaxis: SCDs/TEDs as per primary care team. Code Status: FULL CODE PCP: Mundo Rachel PA-C [[facility]] Disposition: Currently admitted in Med/Surg - discharge planning as per primary service. PT saw and evaluated patient today --> Patient should be fine to go home once medically ready for discharge. We will follow the patient with you during their hospital stay. You can reach a member of the [facility] 07/11 via [employer] Patient seen in collaboration with Dr. Balbuena. Please see addendum. I spent a total of 35 minutes coordinating, documenting, and providing care for this patient excluding time spent in the performance of separately billed services. This included personally reviewing all current laboratories and imaging studies, medical reconciliation, outpatient chart review and discussion with specialists. This chart was completed in part utilizing Speech Voice Recognition Software. Grammatical errors, random word insertions, pronoun errors, and incomplete sentences are an occasional consequence of this system due to software limitations, ambient noise, and hardware issues. Any formal questions or concerns about the content, text, or information contained within the body of this dictation should be directly addressed to the provider for clarification. Admission and Anticipated Discharge Date Admission Date: January 01, 2024 Subjective Patient seen and examined at bedside in room E323-1. Patient reports his pain is well-controlled, has no major complaints or concerns at this time. Stanton catheter expected to be removed today - was draining clear, yellow urine in the room. Patient did have some nausea last night, but that has since resolved. No vomiting. Has been tolerating liquid diet without any issues. Will advance him to regular diet. Review of Systems Review of Systems: At least ten systems reviewed and negative, except as noted in the HPI. Physical Exam Physical Exam: General: WD/WN, vitals as above, NAD, sitting up in chair at bedside, very pleasant, conversing appropriately. A+Ox3, euthymic affect. HEENT: Normocephalic, atraumatic. PERRL, conjunctivae normal, anicteric sclerae. External ear and nose normal, oropharynx normal. Respiratory: Normal respiratory effort, lungs clear to auscultation, no wheeze, rales, rhonchi. No accessory muscle use. Cardiovascular: Regular rate, rhythm, no murmur, normal peripheral pulses, no BLE edema. Vessels: No JVD. Abdomen/GI: Normal bowel sounds, soft, nontender, no hepatosplenomegaly. : Stanton catheter in place and draining clear, yellow urine without issue. Extremities/Musculoskeletal: No cyanosis or clubbing, extremity motor strength intact, moves all extremities. Neurologic: EOMI, no focal deficits, CN's II-XI not formally tested but appear grossly intact bilaterally. Skin: Normal color, warm/dry. ANDREAS drain x 1 intact and draining serosanguineous output. Surgical bandaging dry and intact. Results & Data Results & Data Vital Signs (Past 12 Hours) Vital Signs Temp Pulse Resp BP BP Pulse Ox O2 Del Method 01/02/24 08:37 167/93 H 01/02/24 07:49 36.6 C 76 18 173/96 H 94 Room Air 01/02/24 03:33 36.7 C 88 18 169/91 H 94 Room Air 01/01/24 23:44 36.6 C 93 H 18 166/95 H 92 Room Air Laboratory Results Short CBC 01/02/24 Range/Units 05:28 WBC 8.39 (4.8-10.8) K/ul Hgb 11.2 L (14.0-18.0) g/dl Hct 32.5 L (42.0-52.0) % Plt Count 162 (130-400) K/uL BMP 01/02/24 05:28 Sodium 136 Potassium 3.9 Chloride 104 Carbon Dioxide 26 BUN 24 H Creatinine 0.96 Glucose 164 H Calcium 8.4 L
--- NOTE | 2024-01-02 10:52 | Orthopedic Progress Note ---
Date of Service January 02, 2024 Assessment & Plan (1) Neurogenic claudication due to lumbar spinal stenosis: Plan: At this point we will continue physical therapy monitor his ANDREAS operatively discharge home next few days. Admission and Anticipated Discharge Date Admission Date: January 01, 2024 Subjective Back pain is controlled leg symptoms markedly improved. Physical Exam Physical Exam: Patient is in bed at this time. He is very comfortable. Is good strength testing. Results & Data Vital Signs (Past 12 Hours) Vital Signs Temp Pulse Resp BP BP Pulse Ox O2 Del Method 01/02/24 08:37 167/93 H 01/02/24 07:49 36.6 C 76 18 173/96 H 94 Room Air 01/02/24 03:33 36.7 C 88 18 169/91 H 94 Room Air 01/01/24 23:44 36.6 C 93 H 18 166/95 H 92 Room Air Queries Orthopedic Spine Acute Posthemorrhagic Anemia: Yes
[2024-01-02] MEDS: ACETAMINOPHEN 500 MG TAB PO PRN (14:30)
[2024-01-02] MEDS: METOPROLOL TARTRATE 25 MG TAB PO ONE (17:15)
[2024-01-03 07:01] LABS: Hemoglobin 11.8 g/dl (14.0-18.0); Mean Corpuscular Hemoglobin 31.8 pg (25.0-34.0); Mean Corpuscular Hgb Conc 33.7 g/dL (32.0-36.0); Mean Corpuscular Volume 94.3 fL (80.0-100.0); Platelet Count 173 K/uL (130-400); RDW Coefficient of Variation 11.9 % (11.5-14.5); RDW Standard Deviation 41.1 fL (36.4-46.3); Red Blood Count 3.71 M/uL (4.70-6.10); White Blood Count 8.68 K/ul (4.8-10.8)
[2024-01-03 07:10] LABS: BUN Creatinine Ratio 23.5 (10-20); Calcium 8.8 mg/dl (8.6-10.3); Est GFR (African American) 91.4 ml/min; Est GFR (Non-African American) 78.9 ml/min; Phosphorus 2.5 mg/dl (2.5-4.9); Potassium 3.7 mmol/L (3.5-5.1)
[2024-01-03] MEDS: METOPROLOL TARTRATE 25 MG TAB PO STA (09:45)
[2024-01-03] MEDS: NIFEdipine EXTENDED REL 30 MG TABCR PO SCH (09:46)
[2024-01-03] MEDS: NIFEdipine EXTENDED REL 30 MG TABCR PO STA (10:07)
--- NOTE | 2024-01-03 10:40 | Orthopedic Progress Note ---
Date of Service January 03, 2024 Assessment & Plan (1) Neurogenic claudication due to lumbar spinal stenosis: Plan: Assessment status post some depression fusion but plan at this time we will maintain bedrest today. Will discontinue his drain and change dressing. I am concerned he is developed a spontaneous CSF leak. Will keep him in bed for approximately 24 hours to reassess him tomorrow. We may maintain bedrest until Monday. Admission and Anticipated Discharge Date Admission Date: January 01, 2024 Subjective Patient was having some headaches today and hypertension. He is comfortable in bed. Physical Exam Physical Exam: On exam is currently in bed. Does appear comfortable. Is neurologically intact. Results & Data Vital Signs (Past 12 Hours) Vital Signs Temp Pulse Resp BP Pulse Ox O2 Del Method 01/03/24 08:30 176/101 H 01/03/24 07:22 36.7 C 67 16 192/96 H 93 Room Air Queries Orthopedic Spine Acute Posthemorrhagic Anemia: Yes
--- NOTE | 2024-01-03 11:54 | Hospitalist Progress Note ---
<Statement entered by Willy Balbuena, - 01/03/24 13:34> I have seen and examined the patient and have discussed the case with the provider above. I have reviewed the advanced practitioner's documentation, and I agree with, and take responsibility for that plan of care. 8 minutes spent on coordinating care and examination patient. Patient states pain is controlled, little bit nauseated this morning. Blood pressure increased today. Increase nifedipine Plan of care as outlined below Date of Service January 03, 2024 Assessment & Plan (1) Neurogenic claudication due to lumbar spinal stenosis: (2) S/P lumbar spine operation: Plan Guru Schmidt is a 68y/o M with PMHx significant for HTN, BPH, BLE neuropathy, history of PE in 2019 and GERD who [facility] after undergoing lumbar decompression L2-L3, interbody fusion L2-L3, lumbar fusion L3-S1 and hardware removal L3-L5 performed [address] Dr[address] Estevez on 01/01/24. Neurogenic Claudication 2/2 Lumbar Spinal Stenosis, S/P Lumbar Spine Operation: POD#2 s/p lumbar decompression L2-L3, interbody fusion L2-L3, lumbar fusion L3- S1 and hardware removal L3-L5 performed with Dr. Estevez. EBL: 150mL & Pre-Op Hgb: 13.3 [12/21/23] --> Hgb stable at 11.8 today. Per ortho for pain control, wound care, anticoagulation and activities. Continue incentive spirometry, PT/OT when appropriate as per ortho team. Monitor H/H for acute blood loss anemia and transfuse blood products PRN. ANDREAS drain to be removed today. Headache & Nausea C/F Possible Spontaneous CSF Leak: Patient was c/o a headache and nausea this morning. Was given some IV Zofran. Reached out to Dr. Estevez regarding patient's postoperative hypertension. Mentions concern for spontaneous CSF leak in his documentation. Patient to be on bedrest for now until reassessed by Dr. Estevez tomorrow. May be on bedrest until Monday. Hypertension: SBP continues to be elevated in the 170s-180s. He got a dose of po Lopressor 12.5mg last night without any improvement. Ordered an additional 30mg nifedipine to be given this total (total dose today = 60mg). Will increase his dose of nifedipine to 60mg daily starting tomorrow AM. Other Chronic Medical Conditions: BLE neuropathy, BPH, GERD --> Continue home meds for these specific conditions. BLE neuropathic sx's significantly improved. DVT Prophylaxis: SCDs/TEDs as per primary care team. Code Status: FULL CODE PCP: Mundo Rachel PA-C [[facility]] Disposition: Currently admitted in Med/Surg - discharge planning as per primary service. We will follow the patient with you during their hospital stay. You can reach a [facility] via [employer]. Patient seen in collaboration with Dr. Balbuena. Please see addendum. I spent a total of 45 minutes coordinating, documenting, and providing care for this patient excluding time spent in the performance of separately billed services. This included personally reviewing all current laboratories and imaging studies, medical reconciliation, outpatient chart review and discussion with specialists. This chart was completed in part utilizing Speech Voice Recognition Software. Grammatical errors, random word insertions, pronoun errors, and incomplete sen tences are an occasional consequence of this system due to software limitations, ambient noise, and hardware issues. Any formal questions or concerns about the content, text, or information contained within the body of this dictation should be directly addressed to the provider for clarification. Admission and Anticipated Discharge Date Admission Date: January 01, 2024 Subjective Patient seen and examined at bedside in room E323-1. Complaining of a headache and some nausea this morning. Did receive a dose of IV Zofran this morning. No episodes of vomiting reported. BP is still rather elevated. Patient said his SBP usually runs in the 140s at baseline. He has passed 2 formed bowel movements postoperatively. Mentions his back pain is well-controlled. Stanton catheter was removed yesterday. Dr. Estevez was notified via text message of patient's postoperative hypertension. Review of Systems Review of Systems: At least ten systems reviewed and negative, except as noted in the subjective section. Physical Exam Physical Exam: General: Vitals as above, laying down in bed, complaining of nausea, conversing appropriately. A+Ox3, euthymic affect. HEENT: Normocephalic, atraumatic. PERRL, conjunctivae normal, anicteric sclerae. External ear and nose normal, oropharynx normal. Respiratory: Normal respiratory effort, lungs clear to auscultation, no wheeze, rales, rhonchi. No accessory muscle use. Cardiovascular: Regular rate, rhythm, no murmur, normal peripheral pulses, no BLE edema. Vessels: No JVD. Abdomen/GI: Normal bowel sounds, soft, nontender, no hepatosplenomegaly. Extremities/Musculoskeletal: No cyanosis or clubbing, extremity motor strength intact, moves all extremities. Neurologic: EOMI, no focal deficits, CN's II-XI not formally tested but appear grossly intact bilaterally. Skin: Normal color, warm/dry. ANDREAS drain x 1 intact and draining serosanguineous output. Surgical bandaging dry and intact. Results & Data Results & Data Vital Signs (Past 12 Hours) Vital Signs Temp Pulse Resp BP Pulse Ox O2 Del Method 01/03/24 08:30 176/101 H 01/03/24 07:22 36.7 C 67 16 192/96 H 93 Room Air Laboratory Results Short CBC 01/03/24 Range/Units 06:38 WBC 8.68 (4.8-10.8) K/ul Hgb 11.8 L (14.0-18.0) g/dl Hct 35.0 L (42.0-52.0) % Plt Count 173 (130-400) K/uL BMP 01/03/24 06:38 Sodium 137 Potassium 3.7 Chloride 102 Carbon Dioxide 27 BUN 23 Creatinine 0.98 Glucose 139 H Calcium 8.8
[2024-01-04 06:57] LABS: Hematocrit (blood only) 33.5 % (42.0-52.0); Hemoglobin 11.8 g/dl (14.0-18.0); Mean Corpuscular Hemoglobin 32.4 pg (25.0-34.0); Mean Corpuscular Hgb Conc 35.2 g/dL (32.0-36.0); Mean Platelet Volume 9.8 fL (9.4-12.4); Platelet Count 161 K/uL (130-400); RDW Coefficient of Variation 11.8 % (11.5-14.5); RDW Standard Deviation 40.2 fL (36.4-46.3); Red Blood Count 3.64 M/uL (4.70-6.10); White Blood Count 7.55 K/ul (4.8-10.8)
[2024-01-04 07:12] LABS: BUN Creatinine Ratio 22.3 (10-20); Calcium 8.6 mg/dl (8.6-10.3); Creatinine Clr Calc Pharmacy 95.9 ml/min; Est GFR (African American) 96.2 ml/min; Magnesium 2.1 mg/dl (1.7-2.4); Phosphorus 2.7 mg/dl (2.5-4.9); Potassium 3.5 mmol/L (3.5-5.1)
[2024-01-04] MEDS: NIFEdipine EXTENDED REL 30 MG TABCR PO SCH (07:40)
--- NOTE | 2024-01-04 08:45 | Orthopedic Progress Note ---
Date of Service January 04, 2024 Assessment & Plan (1) Neurogenic claudication due to lumbar spinal stenosis: Plan: Guru is postoperative day 3 status post lumbar decompression and fusion with spontaneous CSF leak. We are going to maintain head of bed restrictions until mid afternoon today. If no symptoms will start to ambulate. Anticipate discharge home tomorrow. Admission and Anticipated Discharge Date Admission Date: January 01, 2024 Allie Garvey is postoperative day 3 lumbar decompression and fusion. He seemed to have had a spontaneous CSF leak yesterday. This morning his headache has resolved. No nausea. No photosensitivity. He is sitting up head of bed eating breakfast at roughly 45 degrees. Denies any lower extremity pain, paresthesia, numbness or weakness. Review of Systems Review of Systems: All systems reviewed & are unremarkable except as noted in HPI & below Physical Exam Physical Exam: He sitting up in bed in no acute distress eating breakfast Lights are on no evidence of photosensitivity. Strength is intact bilateral lower extremities Calf soft nontender bilaterally Dressing is intact Results & Data Vital Signs (Past 12 Hours) Vital Signs Temp Pulse Resp BP Pulse Ox O2 Del Method 01/04/24 07:47 36.5 C 73 16 163/91 H 95 Room Air Queries Orthopedic Spine Acute Posthemorrhagic Anemia: Yes
--- NOTE | 2024-01-04 11:07 | Hospitalist Progress Note ---
<Statement entered by Willy Balbuena, DO - 01/04/24 13:54> I have seen and examined the patient and have discussed the case with the provider above. I have reviewed the advanced practitioner's documentation, and I agree with, and take responsibility for that plan of care. 6 min spent on coordination Patient reports feeling much better, hoping to increase activity potentially later this afternoon. Plan of care as outlined below Date of Service January 04, 2024 Assessment & Plan (1) Neurogenic claudication due to lumbar spinal stenosis: (2) S/P lumbar spine operation: Plan Guru Schmidt is a 68y/o M with PMHx significant for HTN, BPH, BLE neuropathy, history of PE in 2019 and GERD who was referred to our [facility] Team for post-operative medical management after undergoing lumbar decompression L2-L3, interbody fusion L2-L3, lumbar fusion L3-S1 and hardware removal L3-L5 performed [address] Dr[address] Estevez on 01/01/24. Neurogenic Claudication 2/2 Lumbar Spinal Stenosis, S/P Lumbar Spine Operation: POD#3 s/p lumbar decompression L2-L3, interbody fusion L2-L3, lumbar fusion L3- S1 and hardware removal L3-L5 performed with Dr. Estevez. EBL: 150mL & Pre-Op Hgb: 13.3 [12/21/23] --> Hgb stable at 11.8 today. Per ortho for pain control, wound care, anticoagulation and activities. Continue incentive spirometry, PT/OT when appropriate as per ortho team. Monitor H/H for acute blood loss anemia and transfuse blood products PRN. ANDREAS drain out. Headache & Nausea C/F Possible Spontaneous CSF Leak: Headache and nausea resolved. postoperative hypertension is moderate, 160/90 today. Maintain bedrest until Monday. If worsening symptoms would then need to consider blood patch. Hypertension: SBP improved to 160s. s/p Lopressor 12.5mg PO 01/01 pm without any improvement. Increased nifedipine 60 mg daily starting 01/03. Other Chronic Medical Conditions: BLE neuropathy, BPH, GERD --> Continue home meds for these specific conditions. BLE neuropathic sx's significantly improved. DVT Prophylaxis: SCDs/TEDs Code Status: FULL PCP: Mundo Rachel PA-C [[facility]] Disposition: From home, lives with , discharge planning as per primary service. We will follow along. A total of 35 minutes coordinating, documenting, and providing care was utilized for this patient excluding time spent in the performance of separately billed services. This included personally reviewing all current laboratories and imaging studies, medical reconciliation, outpatient chart review and discussion with specialists. Admission and Anticipated Discharge Date Admission Date: January 01, 2024 Allie Garvey is postoperative day 3 lumbar decompression and fusion by Dr. Estevez on 12/31. He seemed to have had a spontaneous CSF leak yesterday. This morning his headache has resolved. No nausea. No photosensitivity. No lightheadedness or dizziness. Denies any lower extremity pain, paresthesia, numbness or weakness. He has ambulated to the bathroom. Bowels moving, no urination complaints. Pt tolerating diet without difficulty. We discussed what a CSF leak is, treatment, and will plan to remain on bedrest today until tomorrow eval per primary service. ANDREAS drain is out. 10 point ROS is reviewed and otherwise negative. Physical Exam Physical Exam: General: awake, alert, no apparent distress, white male Head: Normocephalic, atraumatic ENT: PERRL, EOMI, no pharyngeal exudate, mucous membranes moist Chest: Clear to auscultation, on room air, no adventitious breath sounds Cardiac: Regular rate and rhythm, no murmur, no JVD, normal peripheral pulses, good capillary refill Abdominal: NABS x 4 quadrants, soft, nondistended, nontender to palpation, no rebound or guarding Extremities: Normal inspection, no peripheral edema or erythema, calfs nontender to palpation Psych: Normal mood and affect Neuro: AAO x 3, strength intact bilaterally and rated 5/5, no motor deficits, speech is clear, no peripheral sensory deficits Results & Data Results & Data Vital Signs (Past 12 Hours) Vital Signs Temp Pulse Resp BP Pulse Ox O2 Del Method 01/04/24 07:47 36.5 C 73 16 163/91 H 95 Room Air Laboratory Results 01/04/24 06:34 WBC 7.55 RBC 3.64 L Hgb 11.8 L Hct 33.5 L MCV 92.0 MCH 32.4 MCHC 35.2 RDW Std Deviation 40.2 RDW Coeff of [place] 11.8 Plt Count 161 MPV 9.8 Sodium 138 Potassium 3.5 Chloride 104 Carbon Dioxide 29 Anion Gap 5 BUN 21 Creatinine 0.94 Est Cr Clr Drug Dosing 95.9 Est GFR ( Amer) 96.2 Est GFR (Non-Af Amer) 83.0 BUN/Creatinine Ratio 22.3 H Glucose 107 H Calcium 8.6 Phosphorus 2.7 Magnesium 2.1
[2024-01-04 20:27] VITALS: RESP 18
[2024-01-05 08:10] VITALS: TEMP 98.6; O2SAT 94
--- NOTE | 2024-01-05 09:44 | Hospitalist Progress Note ---
Date of Service January 05, 2024 Assessment & Plan (1) Neurogenic claudication due to lumbar spinal stenosis: (2) S/P lumbar spine operation: Plan Guru Schmidt is a 68y/o M with PMHx significant for HTN, BPH, BLE neuropathy, history of PE in 2019 and GERD who was referred to our [facility] Team for post-operative medical management after undergoing lumbar decompression L2-L3, interbody fusion L2-L3, lumbar fusion L3-S1 and hardware removal L3-L5 performed [address] Dr[address] Estevez on 01/01/24. Neurogenic Claudication 2/2 Lumbar Spinal Stenosis, S/P Lumbar Spine Operation: POD#4 s/p lumbar decompression L2-L3, interbody fusion L2-L3, lumbar fusion L3- S1 and hardware removal L3-L5 performed with Dr. Estevez. EBL: 150mL & Pre-Op Hgb: 13.3 [12/21/23] --> Hgb stable Per ortho for pain control, wound care, anticoagulation and activities. Continue incentive spirometry, PT/OT when appropriate as per ortho team. Monitor H/H for acute blood loss anemia and transfuse blood products PRN. ANDREAS drain out on 01/02. Headache & Nausea C/F Possible Spontaneous CSF Leak: Headache and nausea resolved. postoperative hypertension is moderate, 160/90 today. Was on bedrest until today, per primary service will await instructions for ambulating today If worsening symptoms would then need to consider blood patch. Hypertension: SBP improved to 160s. s/p Lopressor 12.5mg PO 01/01 pm without any improvement. Increased nifedipine 60 mg daily starting 01/03. PCP to assess at follow up appt if needs an additional medication for management or if HTN resolves once out of the hospital. Other Chronic Medical Conditions: BLE neuropathy, BPH, GERD --> Continue home meds for these specific conditions. BLE neuropathic sx's significantly improved. DVT Prophylaxis: SCDs/TEDs Code Status: FULL PCP: Mundo Rachel PA-C [[facility]] Disposition: From home, lives with , discharge planning as per primary service. We will follow along. A total of 35 minutes coordinating, documenting, and providing care was utilized for this patient excluding time spent in the performance of separately billed services. This included personally reviewing all current laboratories and im aging studies, medical reconciliation, outpatient chart review and discussion with specialists. Admission and Anticipated Discharge Date Admission Date: January 01, 2024 Allie Garvey is postoperative day 4 lumbar decompression and fusion by Dr. Estevez on 12/31. He likely had a spontaneous CSF leak 01/02. Pt denies headache, No nausea. No photosensitivity. No lightheadedness or dizziness. Denies any lower extremity pain, paresthesia, numbness or weakness. He has ambulated to the bathroom. Bowels moving, no urination complaints. Pt tolerating diet without difficulty. He feels very good today and is anticipating discharge home. Lives with . 10 point ROS is reviewed and otherwise negative. Physical Exam Physical Exam: General: awake, alert, no apparent distress, white male Head: Normocephalic, atraumatic ENT: PERRL, EOMI, no pharyngeal exudate, mucous membranes moist Chest: Clear to auscultation, on room air, no adventitious breath sounds Cardiac: Regular rate and rhythm, no murmur, no JVD, normal peripheral pulses, good capillary refill Abdominal: NABS x 4 quadrants, soft, nondistended, nontender to palpation, no rebound or guarding Back: Dressing C/D/I, no surrounding tenderness to palpation of the spine. No drainage or ecchymosis or erythema. Extremities: Normal inspection, no peripheral edema or erythema, calfs nontender to palpation Psych: Normal mood and affect Neuro: AAO x 3, strength intact bilaterally and rated 5/5, no motor deficits, speech is clear, no peripheral sensory deficits Results & Data Results & Data Vital Signs (Past 12 Hours) Vital Signs Temp Pulse Resp BP Pulse Ox O2 Del Method 01/05/24 08:06 37.0 C 76 18 163/96 H 94 Room Air
[2024-01-05 12:23] VITALS: BP 157/93; PULSE 73
--- NOTE | 2024-01-05 15:05 | Discharge Summary ---
Date of Service January 05, 2024 Admission HPI Per Admitting Provider This is a 68-year-old male who presents with chronic persistent back and leg pain and failing course of nonoperative care is here for surgical intervention. Principal Diagnosis Lumbar spinal stenosis with neurogenic claudication Discharge Data Allergies Allergy/AdvReac Type Severity Reaction Status Date / Time nabumetone [From Relafen] Allergy Intermediate Mouth sores Verified 01/01/24 06:18 NSAIDS (Non-Steroidal Allergy Intermediate Mouth Verified 01/01/24 06:18 Anti-Inflamma sores - (tolerates Ibuprofen/ASA) morphine AdvReac Intermediate Gastrointestinal Verified 01/01/24 06:18 Upset Consultations 01/01/24 11:16 Consult Hospitalist Routine Procedures Performed Operation Date: 01/01/24 07:45 Actual Procedures p L2-L3 Lumbar Decompression, L2-L3 Interbody Cage, L3-S1 Lumbar Fusion, with Spinal Cord Monitoring(Not Applicable) - Odilon Estevez DO s L3-L5 Hardware Removal,(Not Applicable) - Odilon Estevez DO Ordered Studies 01/01/24 07:45 FL lumbar spine 2-3V Routine Hospital Course (1) Neurogenic claudication due to lumbar spinal stenosis: Patient underwent lumbar decompression fusion trial as well as taken to orthopedic for postoperative postoperatively progressed appropriately. Leg pain improved. Ambulating well. Extra strength testing. Simply discharged home. Discharge orders instructions on the chart for further review. Total Time Total Time Spent Total Time Spent (In Minutes): 20 minutes Discharge Plan Discharge Items Patient Disposition: Home - Self-Care Reason For Visit: Lumbar Spine Pain, Foraminal Stenosis of Lumbar Re Discharge Diagnosis: Lumbar spinal stenosis with neurogenic claudication Activity: As commented below Non-emergency contact: Primary Care Provider Call non-emergency contact if: you have any medication questions Follow-up/Referrals: Mundo Rachel PA-C [Primary Care Provider] - Diet: Regular Addtl Attending Provider Instructions: ACTIVITY RECOMMENDATIONS: SELF CARE INSTRUCTIONS AFTER THORACIC/LUMBAR FUSIONS 1. You may walk to your tolerance. It is good exercise for your legs and back. Expect some back and intermittent leg aches and pains. 2. You may perform "counter-top" level activities (make a sandwich, ivanna with a project, etc.). 3. No bending or lifting of more than 10 pounds or back twisting of any nature (roll like a log when turning in bed). 4. You may ride in a car for 20-30 minutes at a time. No driving until after your first visit with your doctor. 5. Frequent changes of position and restricting sitting to 30 minutes at a time will help limit the amount of back spasms and stiffness you may experience. 6. You may discontinue the use of ambulatory aids (cane, crutches, etc.) once your strength and confidence allow. 7. You may real estate administrator the shower and let water strike your incision when you arrive home at least once daily. Do not take a tub bath, sit in a hot tub or go into a swimming pool until after your first recheck in the office. SPECIAL CARE INSTRUCTIONS: VERY IMPORTANT TO READ AND REVIEW A. Your surgical incision has been closed with a cosmetic suture under the skin that will dissolve in about 6 weeks. In 14 days, you can use a pair of clean scissors and cut the suture that is left outside of the skin at the ends of your incision. 1. The small skin tapes can be removed 7 days after surgery if they have not fallen off by that point. 2. You may keep the wound open to air as much as possible to promote healing after post-op day number 5 unless told otherwise by your doctor. 3. If you think the wound looks like it is becoming infected (redness or worsening drainage) and/or you are experiencing fever, chill or worsening back pain and muscle spasms, contact the office so that we may evaluate you as soon as possible. B. Complications are uncommon, but please contact us if you have any signs or symptoms of: 1. wound infection (fever higher than 102.5 degrees F, redness, separation of wound, drainage, or increasing pain from the incision) 2. blood clots in legs (pain, swelling, redness and warmth in legs) 3. urinary tract infection (fever higher than 102.5 degrees F, burning upon urination or increased frequency of urination) 4. nerve problems (inability to walk on your toes or heels, numbness, loss of bowel or bladder control) 5. any other symptoms that concern you C. Please call the office at if you have any concerns or questions about your operation or recovery. D. No smoking! Smoking drastically decreases the chance of a solid fusion. E. Do not take any anti-inflammatory medications (Indocin, Advil, Motrin, Aspirin, Naprosyn, etc.) as these may inhibit the chance of a solid fusion. Tylenol is okay to take for pain. MANAGING PAIN AFTER SPINAL SURGERY 1. Narcotic medication is intended for short-term use and will be provided for surgical pain. Surgical pain usually lasts for a period of 4-6 weeks. Narcotic medication includes Percocet, Vicodin, Darvocet, Tylenol #3 or Lortab. 2. Longer-term pain is more appropriately treated with non-narcotic medication such as Tylenol ES. 3. Muscle spasm is not appropriately treated with narcotics. Muscle relaxers such as Soma, Flexeril or Skelaxin can be used along with Tylenol ES. 4. Remember that we all live with some "aches and pains". This is not unusual or uncommon after an injury or as we get older. a. Back pain is expected and may include muscle spasms for 4 to 6 weeks after surgery. The pain should gradually improve. If the pain worsens for no apparent reason, please contact the office. b. Intermittent leg pain may also be experienced and should not be concerned about unless it worsens for no apparent reason. If so, please contact the office. 5. We will provide appropriate medication within the normal guidelines of their prescribed use. We will also be very cautious and aware of potential abuse and extended duration of patients' medication needs. a. Pain medications are for your comfort and to assist with sleep and rest so that the tissue can heal. They are not provided in order to return to normal activity and should not be used through the day. To do so or worsening pain at night can result from ongoing tissue damage and developm ent of tolerance to the prescribed medicine. 6. Please allow 2-3 days to process refills. Prescriptions will not be mailed but must be picked up at the office. FOLLOW UP VISIT: Keep your scheduled follow-up appointment. Any questions, please call the office at . Pending Studies at Discharge: No Stand-Alone Forms: My [employer], Smoking Cessation Medications and DC Order Prescriptions: New tramadol 50 mg tablet 50 mg PO Q6H PRN (Reason: pain, moderate) Qty: 30 0RF oxycodone 5 mg tablet 5 mg PO Q6H PRN (Reason: pain) Qty: 30 0RF Continued nifedipine [Procardia XL] 30 mg tablet extended release 24hr 30 mg PO QAM acetaminophen 650 mg tablet extended release 650 mg PO Q12H PRN (Reason: Pain) omeprazole magnesium [Prilosec OTC] 20 mg tablet,delayed release (DR/EC) 20 mg PO QAM gabapentin 600 mg tablet 600 mg PO TID Qty: 270 1RF tramadol 50 mg tablet 50 mg PO BID PRN (Reason: pain) Qty: 40 0RF potassium 99 mg Tablet 99 mg PO QAM finasteride 5 mg Tablet 5 mg PO QAM cholecalciferol (vitamin D3) [Vitamin D3] 50 mcg (2,000 unit) Capsule 50 mcg PO QAM diphenhydramine HCl [Benadryl] 25 mg Capsule 50 mg PO DAILY PRN (Reason: allergies) Discharge Orders: Discharge Order (Routine); Ordered 01/05/24 Ordered By: Odilon Estevez Admission Data Admit Date/Time: 01/01/24 09:42 Attending Provider: Odilon Estevez Admit Provider: Odilon Estevez Primary Care Provider: Mundo Rachel Other Providers: Veronique Arriaga; Willy Balbuena Other Interventions: Discharge Summary Assessment (RN) Last Done: 01/05/24 12:21
== END 2024-01-05 12:53 | disposition home or self-care (01) | DRG 454 ==
LOC: ASU 06:00 → 3E 09:42
DX: Z88.5 Allergy status to narcotic agent; G62.9 Polyneuropathy, unspecified; Z88.6 Allergy status to analgesic agent; I97.3 Postprocedural hypertension; M48.062 Spinal stenosis, lumbar region with neurogenic claudication; G96.09 Other spinal cerebrospinal fluid leak; F17.200 Nicotine dependence, unspecified, uncomplicated; I10 Essential (primary) hypertension